=== PATIENT | female | born 1960 | race Caucasian/White ===

== ENCOUNTER → 2020-05-25 | Outpatient (CLI) | payer OTHER ==
--- NOTE | 2020-05-25 18:37 | RAD ---
PROCEDURE: XR KNEE 1-2 VIEWS STUDY DATE: 05/25/2020 CLINICAL INDICATION / HISTORY: Reason: BILATERAL KNEE PAIN. / Spl. Instructions: / History: . TECHNIQUE: AP, lateral, and tunnel views of the right and left knees. COMPARISON: None FINDINGS: Right knee: The osseous structures are intact. The articular surfaces are smooth. The joint space is maintained . No intra-articular loose bodies. The alignment is within normal limits. The soft tissues show s mall joint effusion. No obvious joint effusion. No radio-opaque foreign bodies are identified. Left knee: The osseous structures are intact. The articular surfaces are smooth. The joint space is maintained . No intra-articular loose bodies. The alignment is within normal limits. The soft tissues show s mall joint effusion. No obvious joint effusion. No radio-opaque foreign bodies are identified. IMPRESSION: No fracture or dislocation is identified in either knee but there is suggestion of small bilateral joint effusions. Electronically signed by: Saud Menchaca MD (05/25/2020 6:34 PM) [id number]
== END ==
LOC: RAD 11:25
PROVIDERS: ATTEND Anesthesiology Pain Medicine
DX: M25.462 Effusion, left knee (principal); M25.461 Effusion, right knee
CPT/HCPCS: 73560-50